=== PATIENT | female | born 1960 | race Caucasian/White ===

== ENCOUNTER 2022-12-17 08:00 | Outpatient (RCR) | payer OTHER, SELFPAY | END 2022-12-18 11:43 | disposition home or self-care (01) | PROVIDERS: PCP Family Medicine; Visit Provider Family Medicine | DX: R41.89 Other symptoms and signs involving cognitive functions and awareness (principal); Z51.89 Encounter for other specified aftercare | CPT/HCPCS: 97110; 97165; 97530; 97535; X5282 ==

== ENCOUNTER 2023-03-17 10:20 | Day surgery (SDC) | payer OTHER, SELFPAY ==
[2023-03-17] VITALS (12 sets, daily range): BP systolic 134–164; BP diastolic 64–107; PULSE 70–105; RESP 13–18; TEMP 36.3–36.8; O2SAT 90–98; BMI 39.9
[2023-03-17] MEDS: LACTATED RINGERS 1000 ML 1,000 ML 100 ML IV ×2 (08:45→13:27)
--- NOTE | 2023-03-17 11:30 | CRLHL7_ITS ---
For Patients: As a result of the Century Cures Act, medical imaging exams and procedure reports are released immediately into your electronic medical record. You may view this report before your referring provider. If you have questions, please contact your health care provider. Indication: RT CALCANEAL OSTEOTOMY, 1ST METATARSAL CUNEIFORM FUSION Technique: Three fluoroscopic images of the right midfoot and ankle. Fluoroscopic time 104.7 seconds. IMPRESSION: Fluoroscopic guidance for calcaneal osteotomy and fusion across the medial midfoot. Dictated by Luis Eduardo Glass MD @ 03/18/2023 11:44:45 AM (Electronically Signed)
[2023-03-17] MEDS: fentaNYL 100 MCG/2 ML inj IVP (11:40)
[2023-03-17] MEDS: MIDAZOLAM HCL 1 MG/ML inj IVP (11:40)
--- NOTE | 2023-03-17 11:48 | SUR.PREOP ---
TIME?OUT:?1139 PT/RN/MDA?VERIFICATION?OF?SURGICAL?SITE,?PROCEDURE,?AND?CONSENT OBTAINED?PRIOR?TO?INVASIVE?PROCEDURE.
--- NOTE | 2023-03-17 14:37 | W.PM.NB ---
Nerve Block Nerve Block Time Seen by Provider: 11:15 Date Seen: 03/17/23 Type of block requested by surgeon for post-operative analgesia: adductor canal Side: right Time out performed: Yes Verification of patient name: Yes Verification of date of : Yes Site marking: not applicable Name of person performing procedure: DEVONTE Odom Continuous monitoring Was continuous monitoring of O2 sat, B/P, vehicle monitor technician, recorded every 15 minutes?: Yes Procedure Checklist: sterile prep, needles and gloves Ultrasound guided. Images saved: Yes Decadron (mg): 10 Precedex (mcg): 20 Patient tolerated procedure well: Yes Block Charges Block Charge (with Pro Fee): Femoral Nerve Use of Ultrasound Machine for Block: Yes- US Guidance/pain block
--- NOTE | 2023-03-17 14:45 | W.PM.NB ---
Nerve Block Nerve Block Time Seen by Provider: 11:15 Date Seen: 03/17/23 Type of block requested by surgeon for post-operative analgesia: popliteal Side: right Time out performed: Yes Verification of patient name: Yes Verification of date of : Yes Site marking: not applicable Name of person performing procedure: DEVONTE Odom Continuous monitoring Was continuous monitoring of O2 sat, B/P, monitoring analyst, recorded every 15 minutes?: Yes Procedure Checklist: sterile prep, needles and gloves Ultrasound guided. Images saved: Yes Medications given in 5ml increments after negative aspiration: Marcaine %: 0.5 mL: 15 Needle gauge: 20 Patient tolerated procedure well: Yes Block Charges Block Charge (with Pro Fee): Sciatic Nerve Use of Ultrasound Machine for Block: Yes- US Guidance/pain block
--- NOTE | 2023-03-17 17:08 | PM.PROC ---
Procedure Note Date Seen: 03/17/23 Date of procedure: 03/17/23 Will [facility] bill your pro fee for this procedure?: No Procedure: 1. Medial slide calcaneal osteotomy right 2. First metatarsal cuneiform joint fusion right 3. Posterior tibial tendon repair right 4. FDL transfer right 5. Gastroc lengthening right Procedure Description: Preoperative diagnosis: 1. Posterior tibial tendon tear right 2. Posterior tibial tendon dysfunction right 3. Pes planus right 4. Gastroc equinus right Postoperative diagnosis: 1. Posterior tibial tendon tear right 2. Posterior tibial tendon dysfunction right 3. Pes planus right 4. Gastroc equinus right Hemostasis: Thigh tourniquet at 300 mm Hg Materials: Arthrex calcaneal osteotomy plate, 3.5 mm cortical screws x3, 4.0 cancellous screw x1, Arthrex Lapidus plate x1, 3.5 mm locking screws x3, 3.5 mm cortical screw x1, 5.5 mm bio tenodesis screw x1. Complications: Bio tenodesis screw lost in the central portion of the navicular. Indication for surgery: Patient had sustained posterior tibial tendon tear due to flatfoot deformity. She has elected to have surgical correction. Reviewed the procedure, recovery, expectations and potential complications. These include but are not limited to: Poor wound healing, infection, under correction, over correction, nonunion, delayed union, malunion, hardware irritation, hardware failure, nerve injury, potential need for future surgery, deep venous thrombosis, pulmonary embolism and possible . All questions answered written consent was obtained. Site marked. Preoperative popliteal and adductor block performed by Anesthesia. 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 Procedure in detail: Patient brought the operating room placed supine position on operating table. She was placed under general anesthesia. She was prepped and draped in sterile fashion. Standard time-out protocol was followed. The right limb was exsanguinated the tourniquet inflated. With her right leg in a frog-leg position linear incision was made over the posterior medial aspect the calf at the terminal aspect of the gastroc muscle. Incision was carried down through subcutaneous tissues to the paratenon. Paratenon was incised and the gastroc aponeurosis was identified. Using combination of a scalpel and a Metzenbaum scissors the aponeurosis was transected in a Padmini type from medial to lateral. Excellent release was obtained. Soleal fibers left intact. Wound was irrigated normal sterile saline. Paratenon was closed with 4-0 Vicryl. Subcutaneous tissues reapproximated 4-0 Vicryl and skin closed with 4-0 Prolene. Incision was made over the lateral body of the calcaneus angled proximal posterior to distal anterior. Incision was taken down through skin subcutaneous tissues. Blunt dissection carried down to the periosteum. A Crego periosteal elevator was used to release the dorsal plantar and medial soft tissues. Osteotomy guide plate of the lateral wall calcaneus and C-arm checked position. Through and through osteotomy was then performed from lateral to medial. Guide was removed. Capital fragment was transposed medially 1 cm. 1 cm calcaneal plate was applied laterally with 3.5 mm cortical screws 1st placed in posterior fragment. Position double checked and a 4 mm cancellous compression screw was placed. Excellent compression across the osteotomy noted. Two 3.5 mm nonlocking screws were placed in the anterior calcaneus. C-arm images confirmed excellent position on lateral and axial views. Wound was thoroughly irrigated normal sterile saline deep fashion subcutaneous tissues reapproximated with 3-0 Vicryl. Skin was closed with 4-0 Prolene. Linear incision was made over the dorsal medial aspect of the 1st metatarsal cuneiform joint. The incision was carried down through skin subcutaneous tissues. The joint capsule was incised and reflected joint. Joint distractor applied and a resurfacing bur used to remove the cartilage and subchondral bone. More bone was taken plantarly in order to plantar flex the 1st ray. Once adequate resection had been achieved wound was thoroughly irrigated normal sterile saline. The opposing fusion surfaces were fenestrated with a drill and fish-scaled with a osteotome. Holding the reduced position a guide pin was placed from plantar medial through the fusion site into the middle cuneiform. 4.0 cannulated headless screw was then inserted using standard technique and excellent compression noted across the fusion site. Lapidus plate was then applied medially with 2 locking 3.5 mm screws proximal and 1 locking screw distal in addition to a nonlocking screw distal. Wound was thoroughly irrigated normal sterile saline. C-arm confirmed excellent position. The fascia closed with 3-0 Vicryl in the subcutaneous tissues reapproximated with 4-0 Monocryl. Skin closed with 4-0 Prolene. Tourniquet was released at this point as we had reached the 2 hour gabe. After 30 minutes and tourniquet was reinflated. Linear incision was made following the posterior tibial tendon starting just proximal to the medial malleolus and coursing to the navicular tuberosity. Incision was carried down through skin subcutaneous tissues. Multiple veins were tied off and cut. Incision was made in the posterior tibial tendon sheath and the sheath was opened along its course. Posterior tibial tendon was found to have significant tearing proximal to the insertion and extending above the medial malleolus. Large portion of the unhealthy tendon was excised and the remainder of the tendon was read to arise with 2-0 FiberWire in a running suture pattern. The FDL tendon was identified this tendon sheath opened. Just proximal to the knot of Aleksandar the tendon was cut. Whipstitch was applied with FiberTape. The navicular tuberosity was identified inferior to the posterior tibial tendon insertion and a guide pin was placed through the body of the navicular exiting dorsally. This was overdrilled with a 5.5 mm drill. The FiberTape was passed through the drill hole out the top of the foot and we advanced the FDL tendon into the osseous tunnel with the foot in a reduced position. Initial bio tenodesis screw was placed unfortunately and advanced to far up the bone tunnel and did not hold the tendon. It was far enough up the bone tunnel and strips that it was left in place. With the tendon reduced the 2nd bio tenodesis screw was placed this time at the appropriate level not passing the tendon excellent holding strength was noted. The proximal suture out the dorsal foot was cut. Wound was thoroughly irrigated normal sterile saline. Final C-arm images were taken. Next the tendon sheath was reapproximated with 3-0 Vicryl. The retinaculum was repaired with 3-0 Vicryl. Subcutaneous tissues reapproximated with a combination of 3-0 Vicryl and 4-0 Monocryl. Skin was closed with 4-0 Prolene. Sterile dressing was applied. Tourniquet was released a 2nd time. Normal capillary fill time returned all digits. Patient was placed in a well-padded plaster splint. She was transferred from OR to PACU vital signs stable and vascular status intact to the right foot. She will discharge for same-day protocols. She was given written and verbal postop instructions. She is given oxycodone for pain. She is to remain nonweightbearing. She will follow up in clinic in 3 days. Anesthesia: GETA and regional Surgeon: Eladio Calvert DPM FACFAS Estimated blood loss (mL): 30 Condition: stable Disposition: PACU
--- NOTE | 2023-03-17 17:13 | W.ANESCHARGE ---
Anesthesia Charges Start Date/Time Anesthesia Start Date: 03/17/23 Anesthesia Start Time: 11:57 Stop Date/Time Anesthesia Stop Date: 03/17/23 Anesthesia Stop Time: 17:08
[2023-03-17] MEDS: MEPERIDINE 25 MG/ML INJ 12.5 MG IVP (17:14)
[2023-03-17] MEDS: HYDROmorphone 0.5 mg/0.5 ml inj IVP ×2 (17:25→18:24)
[2023-03-17] MEDS: ONDANSETRON 2 MG/ML inj 4 MG IVP (19:12)
--- NOTE | 2023-03-17 21:38 | PC.NURSE ---
Updated Dr. Calvert with patient vomiting x2 (Zofran given) and c/o's palpitations while dozing off. Also reported B/P 179/85. No hospital consult at this time. Patient may stay if unable to discharge. Order obtained for IV pain medication if needed.
--- NOTE | 2023-03-17 22:32 | PC.NURSE ---
Return from SDS @ 1800. Elevated BP, tachy. RA. Sharp left ankle pain of 6- PRN 0.5 mg IV dilaudid given x1. Attempted to eat, continues to be nauseous, large emesis x4- PRN zofran given x1 w/ minimal relief. Offered aromatherapy, declined. LS clear. CMS intact. NWB right leg- transfers using w/c, walker, gait belt. PIV- SL'mora. Leonel, spouse, will return in AM. Will continue to monitor, follow POC, and likely go home early AM. Gwendolyn Mackey RN
[2023-03-18] MEDS: OxyCODONE/APAP 5-325 TABLET PO ×2 (00:28→06:10)
[2023-03-18 03:00] VITALS: BP 127/68; PULSE 91; RESP 18; TEMP 36.5; O2SAT 92
[2023-03-18 08:18] VITALS: BP 136/63; PULSE 91; RESP 14; TEMP 36.8; O2SAT 97
[2023-03-18] MEDS: ACETAMINOPHEN 325 MG TABLET 650 MG PO (09:04)
--- NOTE | 2023-03-18 09:33 | PC.NURSE ---
Discharge: Patient pleasant and cooperative. Patient vitally stable, lungs clear, BS WNL, IV removed catheter intact. Patient rated pain 2-3/10, tylenol given once. Patient 1 assist, walker. Patient tolerating regular diet with no nausea. Patient right leg dressing C/D/I. Patient left the floor to home by wheelchair at 0928.
== END 2023-03-18 09:28 | disposition home or self-care (01) ==
LOC: OR 16:04 → MEDSURG 19:33
PROVIDERS: Visit Provider Podiatrist
PROC: (CPT 28300; principal; 2023-03-17 11:30)
PROC: (CPT 28740; 2023-03-17 11:30)
DX: M76.821 Posterior tibial tendinitis, right leg (principal); M66.871 Spontaneous rupture of other tendons, right ankle and foot; M21.41 Flat foot [pes planus] (acquired), right foot; G89.18 Other acute postprocedural pain; M21.6X1 Other acquired deformities of right foot
CPT/HCPCS: 28297; 28300; 27687; 27691; 01480; 64445; 64447; 73630; 76000; 76942; A4580; A9270; C1713; J0665; J1100; J1170; J2175; J2250; J2405; J3010; J7120

== ENCOUNTER 2023-03-26 17:19 | Emergency (ER) | payer OTHER, SELFPAY ==
[2023-03-26 17:53] VITALS: BP 174/92; PULSE 95; RESP 26; TEMP 35.9; O2SAT 97; BMI 39.2
[2023-03-26 18:35] LABS: PCR FLU A Negative PCR FLU A (Negative); PCR FLU B Negative PCR FLU B (Negative); PCR RSV Negative PCR RSV (Negative); SARS PCR* Negative SARS-CoV-2 (Negative)
--- NOTE | 2023-03-26 19:29 | ED.GENADULT ---
HPI - General Adult General Chief complaint: Shortness of Breath/Dyspnea Stated complaint: Severe difficulty ziithiboz-lnxbfi-faymuc surgery Time Seen by Provider: 03/26/23 19:29 History of Present Illness HPI narrative: had right foot, ankle, tendon surgery on 11/01. dc'd on 03/18. comes to ed with concerns of feeling sob, fatigue, right foot and lower leg pain. toes are pink cms intact. has a cast on the right foot. is taking Tylenol, ibuprofen and Ativan. last Ativan at 1613. is taking slow deliberate breaths. sleeping poorly . no hx of blood clots. 62-year-old woman presenting to the emergency department with complaint of shortness of breath. Intermittently feels the need to take a deeper breath. Had surgery over the lower right leg as noted above 1 week ago. She is not really having chest pain. Feels more short of breath when she is lying down. Does have a history of asthma. Has been using her rescue inhaler. Does have a nebulizer but has been using it. She does also have sleep apnea using her CPAP. Poor sleep lately. As we continue talking she reveals that it may be anxiety. Her father is dying and due to her inability to get around she is not able to see him as she can not get into her father's home. Does not have a history of blood clots but this is also of concern. She does not have any increased leg pain. No longer taking opiates for her postsurgical leg. She does take 2 baby aspirin she says. She does have some lorazepam she shows me a prescribed pill bottle. These are 1/2 mg tablets. The seemed to be helping and now less so. Related Data Home Medications Medication Instructions Recorded Confirmed albuterol sulfate 90 mcg/actuation 2 puff inhalation QID PRN dyspnea 03/14/23 03/17/23 aerosol inhaler cetirizine 10 mg tablet 10 mg PO DAILY 03/14/23 03/17/23 epinephrine 0.3 mg/0.3 mL 0.3 mg IM Q2-4H PRN 03/14/23 03/17/23 injection, auto-injector (EpiPen) esomeprazole magnesium 40 mg 40 mg PO DAILY 03/14/23 03/17/23 capsule,delayed release (Nexium) famotidine 20 mg tablet 20 mg PO DAILY 03/14/23 03/17/23 lorazepam 0.5 mg tablet 0.5 mg PO Q6H PRN anxiety 03/14/23 03/17/23 lorazepam 1 mg tablet 1 mg PO Q3D PRN 03/14/23 03/17/23 mometasone-formoterol HFA 200 2 puff inhalation BID 03/14/23 03/17/23 mcg-5 mcg/actuation aerosol inhaler (Dulera) montelukast 10 mg tablet 10 mg PO DAILY 03/14/23 03/17/23 pravastatin 40 mg tablet 40 mg PO DAILY 03/14/23 03/17/23 trazodone 100 mg tablet 100 mg PO QPM 03/14/23 03/17/23 triamcinolone acetonide 0.1 % applic topical 3XD 03/14/23 topical cream Previous Rx's Medication Instructions Recorded albuterol sulfate 2.5 mg/3 mL 2.5 mg (3 mL) inhalation QID PRN 03/26/23 (0.083 %) solution for nebulization #75 mL Allergies Allergy/AdvReac Type Severity Reaction Status Date / Time 2-octyl cyanoacrylate Allergy Rash Verified 03/26/23 22:28 adhesive tape Allergy Rash Verified 03/26/23 22:28 benzoin Allergy Rash Verified 03/26/23 22:28 cephalexin [From Keflex] Allergy Hives Verified 03/26/23 22:28 nickel Allergy Hives Verified 03/26/23 22:28 walnut Allergy Swelling Verified 03/26/23 22:28 of Lip/Tongue/Throat methylprednisolone AdvReac Headache Verified 03/26/23 22:28 [From Medrol] Review of Systems Status of ROS: Reports: 6 or more systems reviewed and unremarkable except as noted in History and below [facility] Medical History Sensorineural hearing loss (SNHL) of both ears ?H90.3 - Sensorineural hearing loss, bilateral (ICD-10) Pulmonary nodules ?R91.8 - Other nonspecific abnormal finding of lung field (ICD-10) Neuroma of lower extremity ?D36.13 - Benign neoplasm of peripheral nerves and autonomic nervous system of lower limb, including hip (ICD-10) LB (obstructive sleep apnea) ?G47.33 - Obstructive sleep apnea (adult) (pediatric) (ICD-10) Hyperlipidemia ?E78.5 - Hyperlipidemia, unspecified (ICD-10) Lumbago ?M54.50 - Low back pain, unspecified (ICD-10) GERD (gastroesophageal reflux disease) ?K21.9 - Gastro-esophageal reflux disease without esophagitis (ICD-10) Asthma ?J45.909 - Unspecified asthma, uncomplicated (ICD-10) Surgical History Hx of bilateral breast reduction surgery ?Z98.890 - Other specified postprocedural states (ICD-10) S/P ACL reconstruction ?Z98.890 - Other specified postprocedural states (ICD-10) Social History Smoking Status: Never smoker How often do you have a drink containing alcohol: never How often do you have six or more drinks on one occasion: Never AUDIT-C Alcohol total score: 0 Non-prescribed substance use: denies use Caffeine: No Are you using contraception or practicing any form of control: No Exam Narrative: Exam Narrative: Pleasant. NAD. Well-perfused and casted ankle/lower leg on the right is up on the bed. Intermittently it demonstrates a deep breath or to. She gets near tears as she reveals some concern of anxiety and her father's near . Oxygenating at 97-99% during our conversation. Lungs are clear without wheeze. No rhonchi or crepitus. Breath sounds throughout. There is no supraclavicular crepitus. No pain to palpation over the chest wall or back. Trachea midline. Left lower extremities without edema. surgical incision also in the right knee. Abdomen is soft and overweight. Heart in elevated but regular rate and rhythm. Const: Vital Signs, click to edit/add: Vital Signs - 24 hr 03/26/23 17:53 03/26/23 19:49 03/26/23 23:03 Temperature 96.6 F L Pulse Rate [Pulse Oximeter] 95 86 Respiratory Rate 26 H 16 Blood Pressure [Ri ght Upper Arm] 174/92 H 146/88 H Pulse Oximetry 97 98 91 Oxygen Delivery Me thod Room Air Room Air Documenting provider has reviewed patient's vital signs: yes Course Vital Signs Vital signs: Initial Vital Signs Temperature 96.6 F L 03/26/23 17:53 Temperature Source Temporal Artery Scan 03/26/23 17:53 Pulse Rate 95 03/26/23 17:53 Pulse Rhythm Regular 03/26/23 17:53 Respiratory Rate 26 H 03/26/23 17:53 Blood Pressure 174/92 H 03/26/23 17:53 Blood Pressure Mean 119 H 03/26/23 17:53 Blood Pressure Position Sitting 03/26/23 17:53 Pulse Oximetry 97 03/26/23 17:53 Oxygen Delivery Method Room Air 03/26/23 17:53 Vital Signs Temperature 96.6 F L 03/26/23 17:53 Pulse Rate 95 03/26/23 17:53 Respiratory Rate 26 H 03/26/23 17:53 Blood Pressure 174/92 H 03/26/23 17:53 Pulse Oximetry 97 03/26/23 17:53 Oxygen Delivery Method Room Air 03/26/23 17:53 Temperature 96.6 F L 03/26/23 17:53 Pulse Rate 86 03/26/23 23:03 Respiratory Rate 16 03/26/23 23:03 Blood Pressure 146/88 H 03/26/23 23:03 Pulse Oximetry 91 03/26/23 23:03 Oxygen Delivery Method Room Air 03/26/23 23:03 Medications Administered Medications: Discontinued Medications Generic Name Dose Route Start Last Admin Trade Name Freq PRN Reason Stop Dose Admin Acetaminophen 1,000 mg 03/26/23 23:13 03/26/23 23:43 Acetaminophen 500 Mg Tablet PO 03/26/23 23:14 1,000 mg ONCE ONE Administration Sodium Chloride 500 mls @ 1,000 mls/hr 03/26/23 19:51 03/26/23 20:54 0.9 % Sodium Chloride 500 Ml IV 03/26/23 20:20 Infused .Q30M ONE Infusion Sodium Chloride 500 mls @ 500 mls/hr 03/26/23 21:49 03/26/23 23:43 0.9 % Sodium Chloride 500 Ml IV 03/26/23 22:48 Infused .Q1H ONE Infusion Lorazepam 0.5 mg 03/26/23 19:51 03/26/23 20:19 Lorazepam 2 Mg/Ml Inj IVP 03/26/23 19:52 0.5 mg ONCE ONE Administration Medical Decision Making MDM Narrative Medical decision making narrative: This sense of air hunger and her description of anxiety I think is probably the best answer for what is going on. With this degree of breathlessness she is demonstrating I would expect some altered oxygenation with significant pulmonary issue otherwise. Does not appear to be having asthma exacerbation at this time. Does not seem to be infectious etiology. She has been without fever. No exposures beyond being in the hospital recently. She does say that she spent 1 night. No sense of palpitations. Uncertain if a D-dimer would be helpful for screening week after surgery. Pulmonary embolus of course is in the differential. Pneumothorax though with breath sounds throughout. Anemia potentially. Mucous membranes do not look particularly pale however and had labs preoperatively. She would however like to know that nothing else is going on. Labs are overall reassuring. With a D-dimer not unexpectedly elevated at 1.3. On reassessment however she notes improvement in her sense of shortness of breath with treatments as given above. I think we have a reasonable explanation for why the D-dimer is elevated that being recent surgery and improvement in her symptoms do suggest psychogenic cause. Chest x-ray by my read is unremarkable. After discussion though in particular would like her to proceed with this CT chest PE protocol; they acknowledge this is likely therapeutic more than diagnostic. I did personally review CT images with radiology over-read noted below CT chest with 95 mL Isovue 370 IV contrast. COMPARISON: CT chest dated 07/13/2020. FINDINGS: Heart and vasculature: No cardiomegaly, no pericardial effusion. Within limitations of motion artifact, no filling defects identified within the main, lobar, and contrast opacified portions of the segmental pulmonary arteries. Atherosclerotic coronary artery calcifications. Lungs and pleura: No evidence of pulmonary infarct. Calcified granuloma in the lingula. No focal consolidation. Thyroid and lower neck: No suspicious thyroid nodule. Mediastinum/neil: No lymphadenopathy. Chest wall: No axillary lymphadenopathy. Upper abdomen: No acute abnormality. Stable ill-defined hypodense lesions in the right lobe of the liver and caudate lobe. Bones: Multilevel degenerative changes of the spine. No suspicious/aggressive focal osseous lesion. IMPRESSION: 1. Limited evaluation secondary to motion artifact, no definite evidence of acute pulmonary embolus. 2. Stable ill-defined hypodense lesions/masses in the right lobe and caudate lobe of the liver. Still overall improved. Seems more relieved. See patient discharge plan Lab Data Lab results reviewed: Yes I reviewed the patient's lab results Labs: Lab Results 03/26/23 03/26/23 Range/Units 17:45 20:01 WBC 6.95 (4.50-11.00) K/uL RBC 4.18 (4.00-5.20) m/uL Hgb 12.5 (12.0-16.0) gm/dL Hct 38.2 (33.0-51.0) % MCV 91 (80-100) fL MCH 30 (26-34) pg MCHC 33 (32-36) gm/dL RDW Coeff of Dillan 13.6 (11.5-15.5) % Plt Count 321 (140-440) K/uL Neut % (Auto) 56.9 (42.0-72.0) % Lymph % (Auto) 30.8 (20-44) % Phelps % (Auto) 8.2 (0.0-11.0) % Eos % (Auto) 3.2 (0.0-7.0) % Baso % (Auto) 0.6 (0.0-3.0) % Neut # (Auto) 3.96 (1.7-7.0) K/uL Lymph # (Auto) 2.14 (0.90-2.90) K/uL Phelps # (Auto) 0.60 (0.00-0.90) K/UL Eos # (Auto) 0.22 (0.00-0.50) K/uL Baso # (Auto) 0.04 (0.00-0.30) K/uL Abs Immat Gran (auto) 0.02 (0.00-0.30) K/uL Imm/Tot Granulo (auto) 0.3 % D-Dimer Quant (PE/DVT) 1.30 H (0.00-0.50) ug/ml Sodium 140 (135-149) mmol/L Potassium 3.9 (3.6-5.1) mmol/L Chloride 107 (96-114) mmol/L Carbon Dioxide 21 (20-32) mmol/L Anion Gap 12 (7-15) mEq/L BUN 14 (7-30) mg/dL Creatinine 0.6 (0.5-1.5) mg/dL Estimated Creat Clear 96.96 Estimated GFR 103 ml/min Glucose 112 (60-115) mg/dL Calcium 9.9 (8.4-10.6) mg/dL Troponin I < 0.01 L (0.01-0.04) ng/mL C-Reactive Protein 0.9 (0.5-1.0) mg/dL NT-Pro-B Natriuret Pep < 20 pg/mL SARS-CoV-2 (PCR) Negative SARS-CoV-2 (Negative) Influenza Type A (PCR) Negative PCR FLU A (Negative) Influenza Type B (PCR) Negative PCR FLU B (Negative) RSV (PCR) Negative PCR RSV (Negative) Discharge Plan Discharge Clinical Impression: Anxiety, Air hunger Patient Disposition: Home w/ Parent or Adult Condition: Stable Additional Instructions: I know you are going through a tough time right now. I do hope that seeing your father might be helpful. I would schedule again with your primary care provider. You might need more of the same medication or something for longer-term management maybe for the next 3 months. I did send in albuterol nebs for you. However you did not seem to have any wheeze or respiratory issue here today at least that we could objectively measure. I wonder if nebulizing distilled water might be helpful for you as a means of focus and relaxing as long as you're not actually wheezing. Prescriptions: New albuterol sulfate 2.5 mg /3 mL (0.083 %) solution for nebulization 2.5 mg inhalation QID PRNQty: 75 0RF No Action triamcinolone acetonide 0.1 % cream topical 3XD albuterol sulfate 90 mcg/actuation HFA aerosol inhaler 2 puff INHALATION QID PRN (Reason: dyspnea) pravastatin 40 mg tablet 40 mg PO DAILY lorazepam 0.5 mg tablet 0.5 mg PO Q6H PRN (Reason: anxiety) trazodone 100 mg tablet 100 mg PO QPM montelukast 10 mg tablet 10 mg PO DAILY lorazepam 1 mg tablet 1 mg PO Q3D PRN Dulera 200-5 mcg/actuation HFA aerosol inhaler 2 puff INHALATION BID cetirizine 10 mg tablet 10 mg PO DAILY epinephrine [EpiPen] 0.3 mg/0.3 mL auto-injector 0.3 mg IM Q2-4H PRN Rx Instructions: do not exceed 12 doses per 24 hrs esomeprazole magnesium [Nexium] 40 mg capsule,delayed release(DR/EC) 40 mg PO DAILY famotidine 20 mg tablet 20 mg PO DAILY Follow Up/Referrals: Linnea Garcia MD [Primary Care Provider] - Stand Alone Forms: Document[employer] Info Instructions
[2023-03-26 19:49] VITALS: O2SAT 98
--- NOTE | 2023-03-26 19:50 | CRLHL7_ITS ---
For Patients: As a result of the Century Cures Act, medical imaging exams and procedure reports are released immediately into your electronic medical record. You may view this report before your referring provider. If you have questions, please contact your health care provider. INDICATION: Dyspnea. TECHNIQUE: Chest 1 view. COMPARISON: Chest radiograph 04/09/2020. FINDINGS: No focal consolidation, pleural effusion, or pneumothorax. Normal heart size and pulmonary vascularity. Mild elevation of the right hemidiaphragm. Degenerative changes of the spine. IMPRESSION: No acute cardiopulmonary findings. Dictated by Letty Sesay MD @ 03/26/2023 8:33:00 PM (Electronically Signed)
[2023-03-26 20:07] LABS: Basophils Absolute Auto 0.04 K/uL (0.00-0.30); Basophils Percent Auto 0.6 % (0.0-3.0); Eosinophils Absolute Auto 0.22 K/uL (0.00-0.50); Eosinophils Percent Auto 3.2 % (0.0-7.0); Hematocrit 38.2 % (33.0-51.0); Hemoglobin* 12.5 gm/dL (12.0-16.0); Immature Granulocytes Abs Auto 0.02 K/uL (0.00-0.30); Immature Granulocytes Pct Auto 0.3 %; Lymphocytes Absolute Auto 2.14 K/uL (0.90-2.90); Lymphocytes Percent Auto 30.8 % (20-44); Mean Corpuscular HGB Conc 33 gm/dL (32-36); Mean Corpuscular Hemoglobin 30 pg (26-34); Mean Corpuscular Volume 91 fL (80-100); Monocytes Percent Auto 8.2 % (0.0-11.0); Neutrophils Absolute Auto 3.96 K/uL (1.7-7.0); Neutrophils Percent Auto 56.9 % (42.0-72.0); Platelet Count* 321 K/uL (140-440); RDW Coefficient of Variation % 13.6 % (11.5-15.5); Red Blood Count 4.18 m/uL (4.00-5.20); White Blood Count* 6.95 K/uL (4.50-11.00)
[2023-03-26 20:12] LABS: Slide Review Reflex No
[2023-03-26] MEDS: 0.9 % SODIUM CHLORIDE 500 ML 500 ML 1000 ML IV (20:18)
[2023-03-26] MEDS: LORazepam 2 MG/ML inj 0.5 MG IVP (20:19)
[2023-03-26 20:20] LABS: Chloride* 107 mmol/L (96-114); Potassium* 3.9 mmol/L (3.6-5.1); Sodium* 140 mmol/L (135-149)
[2023-03-26 20:23] LABS: Creatinine* 0.6 mg/dL (0.5-1.5); Est. Creatinine Clearance* 96.96; Estimated Glomerular Filt Rate 103 ml/min
[2023-03-26 20:24] LABS: Anion Gap 12 mEq/L (7-15); Blood Urea Nitrogen* 14 mg/dL (7-30); Calcium* 9.9 mg/dL (8.4-10.6); Carbon Dioxide* 21 mmol/L (20-32); Glucose* 112 mg/dL (60-115)
[2023-03-26 20:26] LABS: C Reactive Protein* 0.9 mg/dL (0.5-1.0)
[2023-03-26 20:35] LABS: Troponin I* < 0.01 ng/mL (0.01-0.04)
[2023-03-26 20:36] LABS: NT Pro B Type NatriureticPept* < 20 pg/mL
--- NOTE | 2023-03-26 21:49 | CRLHL7_ITS ---
For Patients: As a result of the Century Cures Act, medical imaging exams and procedure reports are released immediately into your electronic medical record. You may view this report before your referring provider. If you have questions, please contact your health care provider. INDICATION: Dyspnea. Postop. TECHNIQUE: CT chest with 95 mL Isovue 370 IV contrast. COMPARISON: CT chest dated 07/13/2020. FINDINGS: Heart and vasculature: No cardiomegaly, no pericardial effusion. Within limitations of motion artifact, no filling defects identified within the main, lobar, and contrast opacified portions of the segmental pulmonary arteries. Atherosclerotic coronary artery calcifications. Lungs and pleura: No evidence of pulmonary infarct. Calcified granuloma in the lingula. No focal consolidation. Thyroid and lower neck: No suspicious thyroid nodule. Mediastinum/neil: No lymphadenopathy. Chest wall: No axillary lymphadenopathy. Upper abdomen: No acute abnormality. Stable ill-defined hypodense lesions in the right lobe of the liver and caudate lobe. Bones: Multilevel degenerative changes of the spine. No suspicious/aggressive focal osseous lesion. IMPRESSION: 1. Limited evaluation secondary to motion artifact, no definite evidence of acute pulmonary embolus. 2. Stable ill-defined hypodense lesions/masses in the right lobe and caudate lobe of the liver. Please note that all CT scans at this facility use dose modulation, iterative reconstruction, and/or weight-based dosing when appropriate to reduce radiation dose to as low as reasonably achievable. Dictated by Gabriela Silverman MD @ 03/26/2023 11:07:50 PM (Electronically Signed)
[2023-03-26] MEDS: 0.9 % SODIUM CHLORIDE 500 ML 500 ML IV (22:57)
[2023-03-26 23:03] VITALS: BP 146/88; PULSE 86; RESP 16; O2SAT 91
[2023-03-26] MEDS: ACETAMINOPHEN 500 MG TABLET 1000 MG PO (23:43)
== END 2023-03-26 23:55 | disposition home or self-care (01) ==
PROVIDERS: Emergency Provider Family Medicine; PCP Family Medicine
DX: F41.9 Anxiety disorder, unspecified (principal); F45.8 Other somatoform disorders
CPT/HCPCS: 36415; 71045; 71275; 80048; 83880; 84484; 85025; 85379; 86140; 87631; 94761; 96374; 99284; A9270; J2060; J7120; Q9967

== ENCOUNTER 2023-06-10 15:45 | Outpatient (RCR) | payer BC, SELFPAY | END 2023-08-26 17:47 | disposition home or self-care (01) | PROVIDERS: PCP Family Medicine; Visit Provider Podiatrist | DX: M76.821 Posterior tibial tendinitis, right leg (principal); M66.871 Spontaneous rupture of other tendons, right ankle and foot; M21.41 Flat foot [pes planus] (acquired), right foot; Z98.890 Other specified postprocedural states; M79.671 Pain in right foot; M25.571 Pain in right ankle and joints of right foot; Z51.89 Encounter for other specified aftercare | CPT/HCPCS: 97110; 97116; 97140; 97161 ==

== ENCOUNTER 2024-02-17 20:12 | Outpatient (CLI) | payer BC, SELFPAY ==
--- OUTSIDE RECORDS SUMMARY | 2024-02-17 20:15 | XMS_ITS | Clinical Summary ---
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 Role Phone Linnea Garcia MD Primary Care Provide r Allergies Active Allergy Reactions Criticality Noted Date Comments 2-Octyl Cyanoacrylate Rash High 04/27/2013 Adhesive Tape-Silicones Rash 08/11/2018 Benzoin Compound Rash 07/04/2015 Cephalexin Hives Methylprednisolone Headache 10/29/2006 Nickel Hives High 02/02/2016 [place] Angioedema 01/09/2017 Medications Medication Sig Dispensed Refills Start Date End Date Status multivitamin capsule 1 tab daily Act corona CALCIUM CARBONATE/VITAMIN D2 (CALCIUM 500 WITH VITAMIN D ORAL) 1 tab twice daily Active cholecalciferol (VITAMIN D-3) 2,000 unit capsule Take 1 capsule by mouth once daily. 0 04/09/2013 Active cetirizine (ZYRTEC) 10 mg tablet Take 1 tablet by mouth once daily. 0 12/04/2017 Active famotidine (PEPCID) 20 mg tabletIndications:Hea rtburn Take 1 tablet by mouth 2 times daily. 180 tablet 3 06/17/2019 Active esomeprazole (NEXIUM) 40 mg capsuleIndications:He artburn Take 1 capsule by mouth once daily before a meal. 30 minutes before breakfast 90 capsule 3 06/17/2019 Active CPAPIndications:LB (obstructive sleep apnea) CPAP machine for home use at pressure 6-15cm/H2O, nasal mask x1/3month with nasal cushion x2/mo. Length of Need: 99 months; Frequency of use: Daily 1 Each 11 10/24/2022 Active magnesium oxide (MAG-OX 400) 400 mg tabletIndications:Dillan icose veins of bilateral lower extremities with other complications Take 1 Tablet (400 mg) by mouth once daily. 0 03/11/2023 Active EPINEPHrine (EPIPEN) 0.3 mg/0.3 mL auto-injectorIndicati ons:Adverse food reaction, initial encounter,Non-seasona l allergic rhinitis due to other allergic trigger Use as directed 2 Each 1 03/11/2023 Active LORazepam (ATIVAN) 0.5 mg tabIndications:Anxiet y Take 1 Tablet (0.5 mg) by mouth every 6 hours if needed for Anxiety. Rare use for panic attacks or insomnia 20 Tablet 03/11/2023 Active triamcinolone (ARISTOCORT; KENALOG) 0.1 % creamIndications:Cont act dermatitis, unspecified contact dermatitis type, unspecified trigger Apply topically to affected area(s) three times daily. 45 g 1 03/11/2023 Active pravastatin (PRAVACHOL) 40 mg tabletIndications:Hyp erlipidemia, unspecified hyperlipidemia type Take 1 Tablet (40 mg) by mouth at bedtime. 90 Tablet 3 03/11/2023 Active traZODone (DESYREL) 100 mg tabletIndications:Fam ilial colorectal cancer (HC),Screening for colon cancer Take 1 Tablet (100 mg) by mouth at bedtime. 90 Tablet 3 03/11/2023 Active albuterol HFA (PRO-AIR; VENTOLIN; PROVENTIL) 90 mcg/actuation inhalerIndications:Mi ld intermittent asthma without complication INHALE 2 PUFFS BY MOUTH FOUR TIMES DAILY NEEDED FOR SHORTNESS OF BREATH 26.8 g 3 06/11/2023 Active hydrOXYzine HCL (ATARAX) 25 mg tabletIndications:Anx iety TAKE 1 TO 2 TABLETS BY MOUTH EVERY 6 HOURS NEEDED FOR ANXIETY 30 Tablet 3 10/06/2023 Active predniSONE (DELTASONE) 20 mg tabletIndications:Cassidy ntar fasciitis, right 2 tablets once daily for 3 days then 1 tablet once daily for 3 days then 1/2 tablet once daily for 4 days. 11 Tablet 12/03/2023 Active montelukast (SINGULAIR) 10 mg tabletIndications:Gas troesophageal reflux disease with esophagitis without hemorrhage TAKE 1 TABLET(10 MG) BY MOUTH AT BEDTIME 90 Tablet 9 12/09/2023 Active CPAPIndications:LB (obstructive sleep apnea) CPAP (E0601) machine for home use at pressure: 8-15 cm , Choice of mask (A7030 or A7034) w/full face cushion (A7031) x1/mo, nasal cushion (A7032) x2/mo, or nasal pillows (A7033) x 2/mo; Length of Need: 99 months; Frequency of use: Daily 1 Each 11 12/25/2023 Active albuterol 0.083% (2.5 mg/3 mL) neb solutionIndications:M ild intermittent asthma without complication Inhale 3 mL (2.5 mg) via a nebulizer every 4 hours if needed for Shortness of Breath 1st choice or Cough 1st choice. One ampule in nebulizer as needed 160 mL 9 12/25/2023 Active mometasone-formoterol (Dulera) 200-5 mcg/actuation inhalerIndications:Mi ld intermittent asthma without complication Inhale 2 Puffs by mouth two times daily. 3 Each 3 12/25/2023 Active eucalyptus-peppermint oil (Ponaris) soln Inhale into affected nostril(s). Active Active Problems Problem Noted Date Diagnosed Date Familial colorectal cancer 06/25/2021 Sensorineural hearing loss (SNHL) of both ears 0 08/06/2018 Allergic contact dermatitis due to adhesives Pulmonary nodules 12/03/2012 Neuroma of lower extremity 08/16/2011 LB 11/21/2009 AHI-10 12/04/2009 Family history of malignant neoplasm of gastrointestinal tract 11/20/2009 Overview (02/25/2020): Colonoscopy 11/2009 benign lymphoid tissuerepeat in 5 years Colonoscopy 11/2014 normal repeat in 5 years Colonoscopy 02/2020 normal, long colon, few diverticuli, repeat in 5 years with an adult scope Chest pain 04/18/2009 Pain in limb 02/12/2007 Unspecified asthma(493.90) Esophageal reflux Overview (10/20/2013): EGD 10/2013 Reactive gastropathy, no esophageal damage Lumbago Other and unspecified hyperlipidemia Resolved Problems Problem Noted Date Diagnosed Date Resolved Date Prediabetes 08/07/2010 12/23/2014 Encounters Date Type Department Care Team Description 02/06/2024 Refill [facility] [address] [place] [address] Roni Collazo MD Refill Request (Dulera) 02/05/2024 10:15 AM CDT Office Visit [facility] [address] [place] [address] Cher Fernandez PA Knee Pain/problem 02/05/2024 Travel 12/29/2023 Telephone [facility] Weight Management [facility] [address] [place] [address] Primitivo Ruth MD Bariatric Insurance Verification 12/25/2023 11:30 AM CDT Office Visit [facility] [address] [place] [address] Roni Collazo MD Follow Up (Annual Asthma/LB on CPAP) 12/25/2023 Travel 12/18/2023 8:00 AM CDT Orders Only [facility] [address] [place] [address] Lab, [place] Lab 12/18/2023 Travel 12/16/2023 Telephone [facility] [address] [place] [address] Linnea Garcia MD Abnormal Lab Results 12/12/2023 Orders Only [facility] Scanner 1 scan: (1-Ord) RESMED, COMPLIANCE REPORT, 12/12/2023 12/06/2023 Refill [facility] [address] [place] [address] Roni Collazo MD Refill Request (Montelukast) 12/05/2023 9:40 AM CDT Office Visit [facility] [address] [place] [address] Linnea Garcia MD Fatigue (Extreme fatigue); Weight (Referral you gave her one before but life got the best of her and she didn't make it in time ); Concerns (Wants handicap sticker renewed ) 12/05/2023 Travel 12/03/2023 1:15 PM CDT Office Visit [facility] [address] [place] [address] Eladio Calvert, DPM Follow Up (Right foot pain ) 12/03/2023 Travel from Last 3 Months Immunizations Name Administration Dates Next Due AMB Influenza, IIV3 (Age >=3 years)(Flu Clinic Only) 03/22/2010 AMB Influenza, IIV4 PF (=>6 mos Flulaval,Fluzone Fluarix)(Flu Clinic Only) 02/25/2017 COVID-19 vaccine (Stratasan 30mcg/0.3mL) PF, MDV 02/06/2021,06/27/2020,06/06/2020 DT (Age < 7 years) 01/19/2002 DTaP 09/13/2011 Influenza A (H1N1), Inactivated 04/24/2009 Influenza A (H1N1), Inactiva adam (Age >=3 Years) 04/24/2009 Influenza RIV4 (Age 18+ Year s) PRESERV FREE 02/05/2022 Influenza, IIV3 (Age 6-35 mos) 03/08/2011 Influenza, IIV3 (Age >=3 years) 02/11/20 13,03/26/2012,03/08/2011,2007,03/16/2007,03/06/2006,03/01/2005,1 Influenza, IIV4 02/06/2021,02/03/2020,01/22/2018 Influenza, IIV4 (=>6mos) MDV 02/11/2023,01/29/20 19 Pneumococcal Conj 20-valent (Prevnar 20) 03/15/2022 Tdap 03/15/2022,09/13/2011 Zoster (Shingrix-RZV, recombinant) 07/19/2021, Family History Medical History Relation Name Comments Hyperlipidemia Brother 1 Cancer Brother 2 lung Cancer Father colon Diabetes Father Hyperlipidemia Father Hypertension Father Hyperlipidemia Mother Hypertension Mother Osteoporosis Mother Other Mother sigmoid volvulu s Cancer Other uncle-- esophag eal cancer Cancer-colon Paternal Uncle Cancer-breast No Family History Relation Name Status Comments Brother 1 Brother 2 Father Mother Other Paternal Uncle Social History Tobacco Use Types Packs/Day Years Used Date Smoking Tobacco: Former Cigarettes 0.5 15 0 05/1965 - 05/12/1980 Smokeless Tobacco: Never Tobacco Cessation:Counseling Given: No Alcohol Use Standard Drinks/Week Comments Not Currently 1 (1 standard drink = 0.6 oz pur e alcohol) PHQ-2 Answer Date Recorded PHQ-2 TOTAL SCORE 1 03/27/2023 Social Connections Answer Date Recorded Frequency of Communication with Friends and Fami ly 0 03/11/2023 Financial Resource Strain Answer Date R ecorded Difficulty of Paying Living Expenses 3 03/11/2023 Difficulty of Paying Living Expenses Not on file 03/11/2023 Food Insecurity Answer Date Recorded Worried About Running Out of Food in the Last Ye ar 1 03/11/2023 Transportation Needs Answer Date Record ed Lack of Transportation (Medical) 1 03/11/2023 Housing Stability Answer Date Recorded Unable to Pay for Housing in the Last Year 1 03/11/2023 Sex and Gender Information Value Date Recorded Sex Assigned at Not on file Gender Identity Not on file Sexual Orientation Not on file Obstetrics History Para Term AB IAB SAB Ectopic Multiple Livin g Live Births 2 2 2 2 Date Outcome GA Total Labor Labor/2nd/3rd Weight Sex Type Anes PTL Jennifer A1 A5 Name Clin Term Term Last Filed Vital Signs Vital Sign Reading Time Taken Comments Blood Pressure 145/81 02/05/2024 10:17 AM CDT Pulse 69 02/05/2024 10:17 AM CDT Temperature 36.8 ??C (98.3 ??F) 10/24/2023 1:28 PM CD T Respiratory Rate 16 12/25/2023 11:30 AM CDT Oxygen Saturation 96% 02/05/2024 10:17 AM CDT Inhaled Oxygen Concentration - - Weight 117.9 kg (260 lb) 12/25/2023 11:30 AM CDT Height 168.9 cm (5' 6.5) 12/25/2023 11:30 AM CD T Body Mass Index 41.34 12/25/2023 11:30 AM CDT Plan of Treatment Upcoming Encounters Date Type Department Care Team (Late st Contact Info) Description 03/12/2024 9:40 AM CDT Office Visit [facility] [address] [place] [address] Linnea Garcia MD [address] [place] [address] 03/15/2024 1:00 PM TESTER EQUIPMENT Telemedicine [facility] - [place] [address] [place] [phone] Primitivo Bustillos MD [address] [place], [place] [phone] 03/15/2024 1:30 PM TESTER EQUIPMENT Phone Office Visit [facility] - [place] [address] [place] [address] Hortencia Patel RN [address] [place] [address] 03/15/2024 2:00 PM TESTER EQUIPMENT Telemedicine [facility] [address] [place], [place] [phone] Darrick Naylor, RD [address] [place], [place] [phone] Health Maintenance Due Date Last Done Comments HIV for age 15-65 1977 COVID-19 vaccine series ( season) 2024 02/11/2023, 02/05/2022, 11/15/2021, Additional history exists Influenza for age 50-64 01/11/2024 02/12/20 23, 02/05/2022, 02/06/2021, Additional history exists Depression screening for age 12+ 03/27/2024 03/27/2023, 03/27/2023, 04/18/2022, Additional history exists Mammogram for age 45-75 06/30/2024 06/30/19 24, 03/15/2022, 03/12/2021, Additional history exists BMI (ht and wt on same day) for age 18+ 12/24/2024 12/25/2023, 03/12/2023, 03/11/2023, Additional history exists Colonoscopy through age 75 02/24/202502/24, 02/25/2020, 02/25/2020, Additional history exists Pap test for age 21-65 02/06/2026 , 02/06/2021, 01/15/2018, Additional history exists Lipids for age 45-75 01/22/2028 01/21/2023, 02/28/2022, 04/23/2021, Additional history exists Tetanus booster 03/15/2032 03/15/2022, 08/2011, 08/07/2010 [facility] Hepatitis C screening for ag e 18-79 Completed 01/28/2019 Zoster (shingles) series for age 50+ Completed 07/19/2021, 05/08/2021 Pneumococcal series for age 6-64 Completed 03/15/20 22 Tdap Completed 03/15/2022, 09/13/2011 Procedures Procedure Name Priority Date/Time Associated Diagnosis Comments HEMOGLOBIN A1C Routine 12/18/2023 8:08 AM CDT Elevated glucose GLUCOSE, FASTING Routine 12/18/2023 8:08 AM CDT Elevated glucose SCAN-DIAGNOSTIC REPORT 12/12/2023 12:00 AM CDT CBC WITH AUTO DIFFERENTIAL Routine 12/05/2023 10:41 AM CDT Fatigue, unspecified type FERRITIN Routine 12/05/2023 10:41 AM CDT Fatigue, unspecified type VITAMIN B12 Routine 12/05/2023 10:41 AM CDT Fatigue, unspecified type MAGNESIUM Routine 12/05/2023 10:41 AM CDT Fatigue, unspecified type VITAMIN D 25 (DEFICIENCY) Routine 12/05/2023 10:41 AM CDT Fatigue, unspecified type TSH WITH REFLEX Routine 12/05/2023 10:41 AM CDT Fatigue, unspecified type CBC WITH AUTO DIFFERENTIAL Routine 12/05/2023 10:41 AM CDT Fatigue, unspecified type COMP METABOLIC PANEL Routine 12/05/2023 10:41 AM CDT Fatigue, unspecified type URINE CULTURE Add On 12/05/2023 10:30 AM CDT Dysuria URINALYSIS MICROSCOPIC Routine 12/05/2023 10:30 AM CDT Dysuria UA W/ SEDIMENT EXAM REFLEXED PER CRITERIA Routine 12/05/2023 10:30 AM CDT Dysuria XR MAMMO MARY BILAT SCREEN Routine 06/30/2023 9:42 AM TESTER EQUIPMENT Visit for screening mammogram LIPID PANEL W REFLEX MEASURED LDL Routine 01/21/2023 4:54 PM CDT Hyperlipidemia, unspecified hyperlipidemia type IRON WORKER THIN PREP PAP SCREEN IMAGED Routine 02/06/2021 4:00 PM CDT Cervical cancer screening COLONOSCOPY SCREENING Routine 02/25/2020 8:12 AM CDT Screening for colon cancer ANTI HCV Routine 01/28/2019 4:33 PM CDT Encounter for hepatitis C screening test for low risk patient from Last 3 Months or Most Recently Relevant to Health Maintenance Results * HEMOGLOBIN A1C SCREENING (12/18/2023 8:08 AM CDT) HEMOGLOBIN A1C SCREENING 6.1 <=6.4 % 12/18/2023 3:19 PM CDT [facility] Blood BLOOD SPECIMEN / Unknown Venipuncture / Unknown 12/18/2023 8:08 AM CDT 12/18/2023 8:10 AM CDT Narrative [facility] - 12/18/2023 3:19 PM CDT ? (<5.7%) ?Normal ? (5.7% to 6.4%) ? Indicates prediabetes ? (>=6.5%) ? Confirms diabetes Falsely low levels may be seen with: Recent Transfusion, Recent Significant Blood Loss, Hemolytic Diseases, or Falsely elevated levels may be seen with: Untreated Anemias, Splenectomy Linnea Garcia MD CHEMISTRY Performing Organization Address City/[facility]/ZIP Co de Phone Number [facility] [address] [place] [address], * GLUCOSE, FASTING (12/18/2023 8:08 AM CDT) GLUCOSE 88 70 - 99 mg/dL 12/18/2023 9:04 AM CDT [facility] Blood BLOOD SPECIMEN / Unknown Venipuncture / Unknown 12/18/2023 8:08 AM CDT 12/18/2023 8:10 AM CDT Linnea Garcia MD CHEMISTRY [facility] [address] [place] [address], * SCAN-DIAGNOSTIC REPORT (12/12/2023 12:00 AM CDT) Scanner OTHER * CBC WITH AUTO DIFFERENTIAL (12/05/2023 10:41 AM CDT) WHITE BLOOD COUNT 6.4 4.5 - 11.0 thou/cu mm 12/05/2023 10:52 AM CDT [facility] RED BLOOD COUNT 4.48 4.00 - 5.20 mil/cu mm 12/05/2023 10:52 AM CDT [facility] HEMOGLOBIN 13.6 12.0 - 16.0 g/dL 12/05/2023 10:52 AM CDT [facility] HEMATOCRIT 41.1 33.0 - 51.0 % 12/05/2023 10:52 AM CDT [facility] MCV 92 80 - 100 fL 12/05/2023 10:52 AM CDT [facility] MCH 30.4 26.0 - 34.0 pg 12/05/2023 10:52 AM CDT [facility] MCHC 33.1 32.0 - 36.0 g/dL 12/05/2023 10:52 AM CDT [facility] RDW 14.2 11.5 - 15.5 % 12/05/2023 10:52 AM CDT [facility] PLATELET COUNT 267 140 - 440 thou/cu mm 12/05/2023 10:52 AM CDT [facility] MPV 9.7 6.5 - 11.0 fL 12/05/2023 10:52 AM CDT [facility] % NEUT 77.7 % 12/05/2023 10:52 AM CDT [facility] % LYMPH 17.9 % 12/05/2023 10:52 AM CDT [facility] % MONO 3.1 % 12/05/2023 10:52 AM CDT [facility] % EOS 0.8 % 12/05/2023 10:52 AM CDT [facility] % BASO 0.5 % 12/05/2023 10:52 AM CDT [facility] ABSOLUTE NEUTROPHILS 5.0 1.7 - 7.0 thou/cu mm 12/05/2023 10:52 AM CDT [facility] ABSOLUTE LYMPHOCYTES 1.1 0.9 - 2.9 thou/cu mm 12/05/2023 10:52 AM CDT [facility] ABSOLUTE MONOCYTES 0.2 <0.9 thou/cu mm 12/05/2023 10:52 AM CDT [facility] ABSOLUTE EOSINOPHILS 0.1 <0.5 thou/cu mm 12/05/2023 10:52 AM CDT [facility] ABSOLUTE BASOPHILS 0.0 <0.3 thou/cu mm 12/05/2023 10:52 AM CDT [facility] Blood BLOOD SPECIMEN / Unknown Venipuncture / Unknown 12/05/2023 10:41 AM CDT 12/05/2023 10:42 AM CDT Linnea Garcia MD HEMATOLOGY Performing Organization Address [facility] Co de Phone Number [facility] [address] [place] [address], * TSH WITH REFLEX (12/05/2023 10:41 AM CDT) TSH 1.24 0.27 - 4.20 uIU/mL 12/05/2023 8:20 PM CDT [facility] Blood BLOOD SPECIMEN / Unknown Venipuncture / Unknown 12/05/2023 10:41 AM CDT 12/05/2023 10:42 AM CDT Narrative [facility] - 12/05/2023 8:20 PM CDT In Adults, TSH values between 5.00 and 10.00 uIU/ml do not necessarily indicate the presence of Hypothyroidism. Correlation with clinical findings such as presence of goiter and/or Thyroperoxidase (TPO) Antibody may be helpful. For more information please refer to RONAL 2004; 291: 228-238. Linnea Garcia MD CHEMISTRY Performing Organization Address [facility] Co de Phone Number [facility] [address] [place] [address], * VITAMIN D 25 (DEFICIENCY) (12/05/2023 10:41 AM CDT) VITAMIN D TOTAL 67.5 20.0 - 80.0 ng/mL 12/05/2023 8:20 PM CDT [facility] Blood BLOOD SPECIMEN / Unknown Venipuncture / Unknown 12/05/2023 10:41 AM CDT 12/05/2023 10:42 AM CDT Narrative [facility] - 12/05/2023 8:20 PM CDT ? Vitamin D Status Deficiency: ? <20 ng/mL Insufficiency: ?20-29 ng/mL Sufficiency: ?30-80 ng/mL Possible Toxicity: ??>80 ng/mL Based on [place] of Medicine recommendations Biotin supplements may cause clinically significant interference for this test assay. ??If interference is suspected, it is strongly recommended that biotin is discontinued for at least one week prior to retesting. Linnea Garcia MD SEND OUTS Performing Organization Address City/[facility] Co de Phone Number [facility] [address] [place] [address], * MAGNESIUM (12/05/2023 10:41 AM CDT) Pathologist [facility] MAGNESIUM 2.2 1.6 - 2.4 mg/dL 12/05/2023 8:20 PM CDT [facility] Blood BLOOD SPECIMEN / Unknown Venipuncture / Unknown 12/05/2023 10:41 AM CDT 12/05/2023 10:42 AM CDT Linnea Garcia MD CHEMISTRY Performing Organization Address [facility] de Phone Number [facility] [address] [place] [address], * FERRITIN (12/05/2023 10:41 AM CDT) Pathologist [facility] FERRITIN 90.3 15.0 - 150.0 ng/mL 12/05/2023 8:20 PM CDT [facility] Blood BLOOD SPECIMEN / Unknown Venipuncture / Unknown 12/05/2023 10:41 AM CDT 12/05/2023 10:42 AM CDT Linnea Garcia MD CHEMISTRY Performing Organization Address [facility] Co de Phone Number [facility] [address] [place] [address], * VITAMIN B12 (12/05/2023 10:41 AM CDT) Pathologist [facility] VITAMIN B12 1,090 232 - 1,245 pg/mL 12/05/2023 8:20 PM CDT [facility] Blood BLOOD SPECIMEN / Unknown Venipuncture / Unknown 12/05/2023 10:41 AM CDT 12/05/2023 10:42 AM CDT [facility] - 12/05/2023 8:20 PM CDT Biotin supplements may cause clinically significant interference for this test assay. ??If interference is suspected, it is strongly recommended that biotin is discontinued for at least one week prior to retesting. Linnea Garcia MD CHEMISTRY [facility] [address] [place] [address], * (ABNORMAL) COMP METABOLIC PANEL (12/05/2023 10:41 AM CDT) SODIUM 141 136 - 145 mmol/L 12/05/2023 8:20 PM T [facility] POTASSIUM 4.8 3.5 - 5.1 mmol/L 12/05/2023 8:20 PM T [facility] CHLORIDE 104 98 - 107 mmol/L 12/05/2023 8:20 PM T [facility] CO2,TOTAL 25 22 - 29 mmol/L 12/05/2023 8:20 PM T [facility] ANION GAP 12 5 - 18 12/05/2023 8:20 PM T [facility] GLUCOSE 134(H) 70 - 99 mg/dL 12/05/2023 8:20 PM T [facility] CALCIUM 10.0 8.8 - 10.2 mg/dL 12/05/2023 8:20 PM T [facility] BUN 15 8 - 23 mg/dL 12/05/2023 8:20 PM T [facility] CREATININE 0.77 0.50 - 0.90 mg/dL 12/05/2023 8:20 PM T [facility] BUN/CREAT RATIO 19 10 - 20 8:20 PM CDT [facility] eGFR 88(L) >90 mL/min/1.7 3m2 12/05/2023 8:20 PM CDT [facility] Comment:As of 2021, eG FR is calculated by the CKD-EPI creatinine equation without race adjustment. ??eGFR can be influenced by muscle mass, exercise, and diet. ??The reported eGFR is an estimation only and is only applicable if the renal function is stable. ALBUMIN 4.8 4.0 - 4.9 g/dL 12/05/2023 8:20 PM CDT [facility] PROTEIN,TOTAL 7.8 6.0 - 8.0 g/dL 12/05/2023 8:20 PM CDT [facility] BILIRUBIN,TOTAL 0.2 0.0 - 1.2 mg/dL 12/05/2023 8:20 PM CDT [facility] ALK PHOSPHATASE 106(H) 35 - 104 IU/L 12/05/2023 8:20 PM CDT [facility] ALT (SGPT) 34 10 - 35 IU/L 12/05/2023 8:20 PM CDT [facility] AST (SGOT) 29 10 - 35 IU/L 12/05/2023 8:20 PM CDT [facility] Blood BLOOD SPECIMEN / Unknown Venipuncture / Unknown 12/05/2023 10:41 AM CDT 12/05/2023 10:42 AM CDT Linnea Garcia MD CHEMISTRY [facility] [address] [place] [address], * (ABNORMAL) URINALYSIS MICROSCOPIC (12/05/2023 10:30 AM CDT) RBC 3-5(A) 0-2, None Seen /HPF 12/05/2023 10:59 AM CDT [facility] WBC 3-5 0-2, 3-5, None Seen /HPF 12/05/2023 10:59 AM CDT [facility] BACTERIA Moderate(A ) None Seen, Rare, Few Bacteria/ HPF 12/05/2023 10:59 AM CDT [facility] EPITHELIAL CELLS Moderate(A ) None Seen, Few Epi/HPF 12/05/2023 10:59 AM CDT [facility] Urine URINE SPECIMEN / Unknown Non-Blood / Unknown 12/05/2023 10:30 AM CDT 12/05/2023 10:51 AM CDT Linnea Garcia MD URINE [facility] [address] [place] [address], [place] [phone] * URINE CULTURE (12/05/2023 10:30 AM CDT) CULTURE No growth (<1,000 CFU/mL) 12/06/2023 1:28 PM CDT [facility] Urine URINE SPECIMEN / Unknown Non-Blood / Unknown 12/05/2023 10:30 AM CDT 12/05/2023 10:51 AM CDT Linnea Garcia MD MICROBIOLOGY [facility] [address] [address], [place] * (ABNORMAL) UA W/ SEDIMENT EXAM REFLEXED PER CRITERIA (12/05/2023 10:30 AM CDT) COLOR Yellow Yellow Color 12/05/2023 10:58 AM CDT [facility] CLARITY Clear Clear Clarity 12/05/2023 10:58 AM CDT [facility] SPECIFIC GRAVITY,URINE 1.020 1.010, 1.015, 1.020, 1.025 12/05/2023 10:58 AM CDT [facility] PH,URINE 6.5 6.0, 7.0, 8.0, 5.5, 6.5, 7.5, 8.5 12/05/2023 10:58 AM CDT [facility] UROBILINOGEN, QUALITATIVE Normal Normal EU/dl 12/05/2023 10:58 AM CDT [place] [facility] PROTEIN, URINE Negative Negative mg/dL 12/05/2023 10:58 AM CDT [facility] GLUCOSE, URINE Negative Negative mg/dL 12/05/2023 10:58 AM CDT [facility] KETONES,URINE Negative Negative mg/dL 12/05/2023 10:58 AM CDT [facility] BILIRUBIN,URI NE Negative Negative 12/05/2023 10:58 AM CDT [facility] OCCULT BLOOD,URINE Negative Negative 12/05/2023 10:58 AM CDT [facility] NITRITE Negative Negative 12/05/2023 10:58 AM CDT [facility] LEUKOCYTE ESTERASE Trace(A) Negative 12/05/2023 10:58 AM CDT [facility] Urine URINE SPECIMEN / Unknown Non-Blood / Unknown 12/05/2023 10:30 AM CDT 12/05/2023 10:51 AM CDT Linnea Garcia MD URINE [facility] [address] [place] [address], * XR MAMMO MARY BILAT SCREEN (06/30/2023 9:42 AM TESTER EQUIPMENT) Anatomical Region Laterality Modality BREASTS, Breast Left, Breast Right Bilateral Mammography Impressions 07/02/2023 6:47 AM TESTER EQUIPMENT ??There is no radiographic evidence for malignancy. ??Recommend annual mammograms. MAMMOGRAM ASSESSMENT: ??ACR 2 Benign PATIENTS: You will also receive a letter with your examination results in an easy to read format. ??If you have questions about your results, please contact your referring provider. Narrative 07/02/2023 6:47 AM TESTER EQUIPMENT For Patients: As a result of the 21st Century Cures Act, medical imaging exams and procedure reports are released immediately into your electronic medical record. You may view this report before your referring provider. If you have questions, please contact your health care provider. XR MAMMO MARY BILAT SCREEN [[id number]] CLINICAL HISTORY: ??This is an asymptomatic 62 y.o. patient. INDICATION FOR EXAM: Mammogram Screening. TECHNIQUE: CC & MLO views were obtained. ??This study was evaluated with the assistance of Computer-Aided Detection. Breast Tomosynthesis was used in interpretation. COMPARISON FILMS: Yes 03/15/22 [facility] 03/12/21 [facility] FINDINGS: ??The breasts are almost entirely fatty. ??No suspicious masses or microcalcifications. ??There are changes of breast reduction.. Linnea Garcia MD MAMMO * LIPID PANEL W REFLEX MEASURED LDL (01/21/2023 4:54 PM CDT) CHOLESTEROL,TOTAL 198 100 - 199 mg/dL 01/22/2023 9:12 PM CDT [facility] Comment: Cholesterol, Total Reference Ranges Desirable <200 mg/dL Borderline 200-239 mg/dL High >=240 mg/dL TRIGLYCERIDES 97 <150 mg/dL 01/22/2023 9:12 PM CDT [facility] HDL CHOLESTEROL 55 >40 mg/dL 9:12 PM CDT [facility] NON-HDL CHOLESTEROL 143 <145 mg/dl 01/22/2023 9:12 PM CDT [facility] CHOL/HDL RATIO 3.60 <4.50 01/22/2023 9:12 PM CDT [facility] LDL CHOLESTEROL 124 <=130 mg/dL 01/22/2023 9:12 PM CDT [facility] VLDL CHOLESTEROL 19 <=30 mg/dL 01/22/2023 9:12 PM CDT [facility] PROVIDER ORDERED STATUS RANDOM 01/22/2023 9:12 PM CDT [facility] Blood BLOOD SPECIMEN / Unknown Venipuncture / Unknown 01/21/2023 4:54 PM CDT 01/21/2023 4:55 PM CDT Linnea Garcia MD [facility]MI[facility] [address] [place] [address], [place] * IRON WORKER THIN PREP PAP SCREEN IMAGED (02/06/2021 4:00 PM CDT) Case Report Gynecologic Cytology Report ? Case: [id number] ? Authorizing Provider: ??Linnea Garcia, ??Collected: ? 02/06/2021 1600 ? MD ? Ordering Location: ? [facility] ?? Received: ?02/07/2021 1441 ? Clinic ? First Screen: ?Baccam, Minie ? Specimen: ?IRON WORKER ThinPrep Vial Screening, Cervical ? 02/21/2021 1:32 PM CDT [facility] INTERPRETATION/ RESULT NEGATIVE FOR INTRAEPITHELIAL LESION OR MALIGNANCY (NIL) (none) 02/21/2021 1:32 PM CDT [facility] IMEN ADEQUACY Satisfactory for evaluation No endocervical component seen 02/21/2021 1:32 PM CDT [facility] HPV REQUEST HPV if ASCUS 02/21/2021 1:32 PM CDT [facility] Date of LMP years 02/21/2021 1:32 PM CDT [facility] Last Pap Date 01/15/18 02/21/2021 1:32 PM CDT [facility] Last Pap Result NIL 1:32 PM CDT [facility] Abnormal Pap or Headland Bx in last 5 years No 02/21/2021 1:32 PM CDT [facility] Menstrual Status Postmenopausal 02/21/2021 1:32 PM CDT [facility] Headland Bx Done Today No 02/21/2021 1:32 PM CDT [facility] Additional Information None given 02/21/2021 1:32 PM CDT [facility] Comment: Cytology is screened at [facility] - [address], [place] [address] and [facility] - [address] [place] [address] and [facility] - [address] [place] [address] Interpreted at [facility] - [address], [place] [address] Automated Review Successful 02/21/2021 1:32 PM CDT [facility] Comment:Specimen processed s uccessfully by automated carpenter's helper device, [employer], [employer] Note The pap test is a screening technique, not a diagnostic procedure. It is used primarily to screen for squamous cancers and precursor lesions. Published studies have shown that it is subject to both false negative and false positive results. The pap test should not be used as the sole means to diagnose or exclude pre-malignant and malignant lesions. 02/21/2021 1:32 PM CDT [facility] Other (Cervical) Non-Blood / Unknown 02/06/2021 4:00 PM CDT 02/07/2021 2:41 PM CDT Linnea Garcia MD PATHOLOGY/CYT OLOGY [facility] [address] [place] [id number], [place] * COLONOSCOPY SCREENING (02/25/2020 8:12 AM CDT) Linnea Garcia MD GI PROCEDURE ORD * ANTI HCV (01/28/2019 4:33 PM CDT) HEPATITIS C ANTIBODY Non-React corona Non-React corona 01/29/2019 3:00 PM CDT [facility] Comment:Antibodies to HCV no t detected; does not exclude the possibility of exposure to HCV. Blood BLOOD SPECIMEN / Unknown Venipuncture / Unknown 01/28/2019 4:33 PM CDT 01/28/2019 4:33 PM CDT Linnea Garcia MD SEND OUTS [facility] 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
--- NOTE | 2024-02-17 20:30 | MR_ITS ---
[address] [address] Phone:?[phone] Fax:?[phone] Referring Physician Information: Bryan Bolden M.D. [address] [facility] [address] Phone:?[phone] Fax:?[phone] Patient:Mila Quezada D.O.B:?1960 Sex:?Female Phone:?[phone] [facility] MRN:?[id number] Exam Date:?02/17/2024 EXAM: MRI of the RIGHT KNEE, without contrast CLINICAL INFORMATION: Female, 63 years old, with right knee pain. INDICATION: Evaluate for internal derangement. PRIOR SURGERY: None reported. PLAIN FILMS: None available. COMPARISONS: No prior MRIs available. TECHNICAL INFORMATION: Using a 1.5T MR scanner and a localizing surface coil: sagittals: PD, T2FS coronals: PD, T2, STIR axials: PD, T2FS SEDATION: None CONTRAST: None FINDINGS: Knee joint: Effusion: Small right knee effusion. Popliteal cyst: None. Loose bodies: Approximately 1.6 x 1.2 cm corticated osseous density in the region of the distal semimembranosus tendon. No discrete intra-articular body. Subcutaneous and extra-articular soft tissues: Unremarkable. Ligaments: ACL: Intact ACL anteromedial and posterolateral bundles, without sprain or tear. PCL: Intact PCL, without acute or chronic injury. MCL: Intact MCL superficial and deep layers, without injury. LCL: Intact LCL, without injury. Posterolateral corner: No posterolateral corner soft tissue injury. Popliteus, biceps femoris, iliotibial band, popliteofibular ligament and lateral gastrocnemius are intact. Posteromedial corner: Mild semimembranosus tendinopathy, without tear. Pes anserine tendons and posterior oblique ligament are without injury, tendinopathy or bursitis. Extensor mechanism: Patellar tendon: Intact, without tendinopathy. Quadriceps tendon: Intact, without tendinopathy. Retinacula: Medial and lateral retinacula are intact. Fat pads: Unremarkable infrapatellar Hoffa's, quadriceps and prefemoral fat pads. Medial compartment: Medial meniscus: Abnormal signal and irregularity is present throughout the posterior meniscocapsular junction, without discrete tear. Medial femoral condyle: Focal chondral fissuring of the central surface with a 1.2 x 0.9 cm area of chondral delamination (coronal STIR series 8 image 20 and sagittal T2FS series 6 image 21). This is superimposed upon grade II chondromalacia. Medial tibial plateau: Broad-based grade II chondromalacia of the medial tibial plateau, with minimal marginal osteophytosis. Lateral compartment: Lateral meniscus: No articular surface, meniscosynovial junction or root tear. No displacement, extrusion or parameniscal cyst. Lateral femoral condyle: No chondromalacia or osteochondral abnormality. Lateral tibial plateau: No chondromalacia or osteochondral abnormality. 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 Trochlea: Generalized grade III/IV chondromalacia of the trochlea, with mild/moderate marginal osteophytosis. Proximal tibiofibular joint: Unremarkable, without evidence of ligament sprain injury, joint effusion or adjacent marrow edema. Bones: No stress/occult fractures or other marrow edema/pathology. IMPRESSION: 1. Advanced osteoarthritis of the patellofemoral compartment. 2. Posterior meniscocapsular junction sprain of the medial meniscus. No discrete medial or lateral meniscal tear. 3. Minimal osteoarthritis of the medial compartment with focal fissuring and a 1.2 x 0.9 cm area of chondral delamination of the central surface of the medial femoral condyle. 4. Small knee joint effusion. No popliteal (Ennis's) cyst. 5. No cruciate or collateral ligament sprain/tear. 6. No lateral meniscal tear or osteochondral abnormality of the lateral compartment. BC Electronically signed on 02/18/2024 9:26:00 AM by Shadi Jin M.D.
== END 2024-02-17 20:13 | disposition home or self-care (01) ==
LOC: MRI 20:12
PROVIDERS: PCP Family Medicine; Visit Provider Orthopaedic Surgery
DX: M25.561 Pain in right knee (principal); S89.91XA Unspecified injury of right lower leg, initial encounter; M17.11 Unilateral primary osteoarthritis, right knee; S83.8X1A Sprain of other specified parts of right knee, initial encounter; M25.461 Effusion, right knee
CPT/HCPCS: 73721